=== PATIENT | female | born 1970 | race Caucasian/White ===

== ENCOUNTER 2019-11-23 19:37 | Emergency (ER) | payer BC, OTHER ==
[~2019-11-23] VITALS: Ht 170.2 cm; Wt 81.6 kg
[2019-11-23 21:42] LABS: Basophils # (auto) 0 10 ^3/uL (0-0.2); Eosinophils # (auto) 0 10 ^3/uL (0-0.8); Lymphocytes # (auto) 1.2 10 ^3/uL (0.4-5.4); Monocytes # (auto) 0.3 10 ^3/uL (0-1.3); Neutrophils # (auto) 1.6 10 ^3/uL (1.6-8.6); Red Blood Cells 3.32 10^6/uL (4.0-5.20); White Blood Cell 3.2 10^3/uL (4.4-10.8)
[2019-11-23 21:44] LABS: Albumin 3.4 g/dL (3.4-5.0); Anion Gap 12 (5-15); Blood Urea Nitrogen 11 mg/dL (7-18); Calcium 8.3 mg/dL (8.5-10.1); Carbon Dioxide 22 mmol/L (21-32); Chloride 109 mmol/L (98-107); Glucose 173 mg/dL (74-106); Magnesium 1.6 mg/dL (1.6-2.6); Sodium 143 mmol/L (136-145)
[2019-11-23 21:46] LABS: Basophils % (auto) 0.4 % (0.0-2.0); Hematocrit 35.9 % (36.0-46.0); Hemoglobin 12.6 g/dL (12.2-16.2); Lymphocytes % (auto) 38.7 % (10.0-50.0); Mean Corpuscular Volume 108.4 fL (80.0-100.0); Monocytes % (auto) 9.6 % (0.0-12.0); Neutrophils % (auto) 50.3 % (37.0-80.0); Nucleated Red Blood Cells % 0.2 %; Platelet Count (auto) 177 10^3/uL (140-450); Red Cell Distribution Width 15.6 % (11.8-14.3)
[2019-11-23 21:54] LABS: Alanine Aminotransferase 105 U/L (13-56); Alkaline Phosphatase 82 U/L (45-117); Aspartate Aminotransferase 141 U/L (15-37); BUN/Creatinine Ratio 11.7; Bilirubin, Total 0.2 mg/dL (0.2-1.0); Creatine Kinase IFCC 73 U/L (26-192); GFR African American 82 mL/min; GFR Non-African American 68 mL/min; Total Protein 6.3 g/dL (6.4-8.2)
[2019-11-23 22:04] LABS: INR 1.01 (0.9-1.15); Partial Thromboplastin Time 23.5 sec (23.0-31.2)
[2019-11-23 22:08] LABS: Potassium 2.7 mmol/L (3.5-5.1)
[2019-11-23 22:44] LABS: Urine Bacteria NONE SEEN /hpf (None Seen); Urine Blood Negative /uL (Negative); Urine Mucus FEW (None Seen); Urine Specific Gravity 1.023 (1.001-1.035); Urine WBC 4 /hpf (0 - 5)
[2019-11-23 22:52] LABS: Amphetamine Screen, Urine NEGATIVE (NEGATIVE); Barbiturate Scree,Urine NEGATIVE (NEGATIVE); Benzodiazephine Screen, Urine NEGATIVE (NEGATIVE); Cannabinoid Screen, Urine POSITIVE (NEGATIVE); Cocaine Screen, Urine NEGATIVE (NEGATIVE); Opiate Scree,Urine NEGATIVE (NEGATIVE); Phencyclidine Screen, Urine NEGATIVE (NEGATIVE)
[2019-11-23] MEDS ORDERED: POTASSIUM EFFERVESENT TAB 25 MEQ PO ONE (23:15)
[2019-11-23] MEDS ORDERED: LORazepam 0.5 MG TAB PO ONE (23:15)
[2019-11-24 01:21] LABS: Albumin 3.2 g/dL (3.4-5.0)
[2019-11-24 01:25] LABS: Bilirubin, Direct 0.1 mg/dL (0-0.2); Bilirubin, Total 0.2 mg/dL (0.2-1.0); Total Protein 5.9 g/dL (6.4-8.2)
[2019-11-24] MEDS ORDERED: TEMAZEPAM 15 MG CAP PO ONE ×2 (05:00→23:00)
[2019-11-24] MEDS ORDERED: SODIUM CHLORIDE 0.9% 1,000 ML IV ONE (10:30)
[2019-11-24] MEDS ORDERED: LORazepam 2MG/ML-1ML VIAL IV ONE (10:30)
[2019-11-24] MEDS ORDERED: FOLIC ACID 1 MG, MULTIPLE VITAMIN 10 ML, MAGNESIUM SULF SDV 50% 8 MEQ, THIAMINE INJ 100... INJ ONE ×5 (12:00)
[2019-11-24] MEDS: LORazepam 2MG/ML-1ML VIAL IV SCH ×3 (16:15→23:03)
[2019-11-24] MEDS ORDERED: LORazepam 2MG/ML-1ML VIAL IM ONE (18:00)
[2019-11-24] MEDS ORDERED: ACETAMINOPHEN 325 MG TAB PO ONE (23:45)
[2019-11-25] MEDS: LORazepam 2MG/ML-1ML VIAL IV SCH ×3 (02:12→09:07)
[2019-11-25 11:00] VITALS: BP 159/90
== END 2019-11-25 10:37 | disposition short-term general hospital (02) ==
LOC: ER 19:37 → EDBD 19:37 → ER 11-25 10:37
DX: T42.6X1A Poisoning by other antiepileptic and sedative-hypnotic drugs, accidental (unintentional), initial encounter (principal); F32.9 Major depressive disorder, single episode, unspecified; R45.851 Suicidal ideations; F10.129 Alcohol abuse with intoxication, unspecified; F19.10 Other psychoactive substance abuse, uncomplicated; E87.6 Hypokalemia; E11.65 Type 2 diabetes mellitus with hyperglycemia; R74.8 Abnormal levels of other serum enzymes; E44.1 Mild protein-calorie malnutrition; F41.9 Anxiety disorder, unspecified; I10 Essential (primary) hypertension; F17.210 Nicotine dependence, cigarettes, uncomplicated; Y90.7 Blood alcohol level of 200-239 mg/100 ml; Z68.28 Body mass index [BMI] 28.0-28.9, adult; Z98.890 Other specified postprocedural states; Y92.89 Other specified places as the place of occurrence of the external cause
CPT/HCPCS: 36415; 80053; 80076; 80307; 80320; 80329; 81001; 82550; 82553; 83735; 83880; 84484; 84702; 85025; 85610; 85730; 93005; 96361; 96365; 96375; 96376; 99285; J2060; J3411; J3475; J7070

== ENCOUNTER 2020-08-05 12:16 | Emergency (ER) | payer BC, MEDICAID ==
[~2020-08-05] VITALS: Ht 160 cm; Wt 74.8 kg
[2020-08-05] MEDS ORDERED: LORazepam 2MG/ML-1ML VIAL IV ONE (12:30)
[2020-08-05] MEDS ORDERED: ASPirin 81 mg TAB PO ONE (12:30)
[2020-08-05 12:58] VITALS: BP 139/96
== END 2020-08-05 13:01 | disposition left against medical advice (07) ==
LOC: ER 12:16
DX: M79.602 Pain in left arm (principal); M79.605 Pain in left leg; I10 Essential (primary) hypertension; F17.210 Nicotine dependence, cigarettes, uncomplicated; Z86.73 Personal history of transient ischemic attack (TIA), and cerebral infarction without residual deficits; Z90.49 Acquired absence of other specified parts of digestive tract; Z91.018 Allergy to other foods

== ENCOUNTER 2024-03-02 20:35 | Emergency (ER) | payer MEDICAID ==
[~2024-03-02] VITALS: Ht 160 cm; Wt 78.7 kg
[2024-03-03] MEDS: KETOROLAC TROMETH 60MG/2ML VIAL IM ONE (01:06)
--- NOTE | 2024-03-03 01:15 | DVH ---
XY R HAND 3 VIEW XRAY, INDICATION: dog bites pain and swelling TECHNICAL DATA: Frontal, oblique and lateral views were obtained of the right hand. COMPARISON: None FINDINGS: No fracture is identified. Joint spaces are maintained. Alignment is anatomic. Soft tissues are withi n normal limits. IMPRESSION: No acute fracture or dislocation of the right hand.
[2024-03-03] MEDS ORDERED: AUG875T PO (01:24)
[2024-03-03] MEDS ORDERED: IBUP-1456 PO (01:24)
--- NOTE | 2024-03-03 01:24 | ED.PDOC ---
History of Present Illness(SKN HPI Comments 54-year-old female presents to the ED chief complaint dog bite to right hand. States she was trying to break up her dogs that were fighting a Malian Henry and a pit bull and the pit bull bit her right hand. He is complaining of right hand pain 10/10 on pain scale throbbing and sharp in nature nonradiating. She states indications are up-to-date on the dog and her tetanus was under 10 years ago. Denies numbness, weakness or any other known injury. Chief Complaint: Animal Bite Time Seen by MD: 20:40 History of Present Illness: Nurses Notes, Medications, Allergies Allergies: Coded Allergies: Gluten Meal (Verified Allergy, Unknown, 11/23/19) Wheat (Verified Allergy, Unknown, 11/23/19) Home Meds Active Scripts Ibuprofen (Ibuprofen) 800 Mg Tab, 1 TAB PO TID PRN for 5 Days, #15 TAB Prov:WALKER LOVELACE [employer] 03/03/24 Amoxicillin & Pot Clavulanate (AUGMENTIN TABLET) 875 Mg Tb, 1 TAB PO BID for 7 Days, #14 TAB Prov:WALKER LOVELACE [employer] 03/03/24 Information Source: Patient Mode of Arrival: Ambulatory Past Medical History PAST MEDICAL HISTORY: Anxiety, Depression, HTN, TIA Surgical History: Cholecystectomy, DIRECTOR OF INSTITUTIONAL RESEARCH History: No Pertinent DIRECTOR OF INSTITUTIONAL RESEARCH History Family History Family History: Reviewed,noncontributory to illness, Family hx of HTN Social History Smoker: Cigarettes, Less Than 1 Pack/Day Alcohol: Rarely Drugs: Denies Drug Use Lives In: Home Constitutional: denies: chills, diaphoresis, fatigue, fever, malaise, sweats, weakness, others EENTM: denies: blurred vision, double vision, ear bleeding, ear discharge, ear drainage, ear pain, ear ringing, eye pain, eye redness, hearing loss, mouth pain, mouth swelling, nasal discharge, nose bleeding, nose congestion, nose pain, photophobia, tearing, throat pain, throat swelling, voice changes, others Respiratory: denies: cough, hemoptysis, orthopnea, SOB at rest, shortness of breath, SOB with excertion, stridor, wheezing, others Cardiovascular: denies: chest pain, dizzy spells, diaphoresis, Dyspnea on exertion, edema, irregular heart beat, left arm pain, lightheadedness, palpitations, PND, syncope, others Gastrointestinal: denies: abdomen distended, abdominal pain, blood streaked bowels, constipated, diarrhea, dysphagia, difficulty swallowing, hematemesis, melena, nausea, poor appetite, poor fluid intake, rectal bleeding, rectal pain, vomiting, others Genitourinary: denies: abnormal vagina bleeding, burning, dyspareunia, dysuria, flank pain, frequency, hematuria, incontinence, pain, , vagina discharge, urgency, others Neurological: denies: dizziness, fainting, headache, left sided numbness, left sided weakness, numbness, paresthesia, pre-existing deficit, right sided numbness, right sided weakness, seizure, speech problems, tingling, tremors, weakness, others Musculoskeletal: denies: back pain, gout, joint pain, joint swelling, muscle pain, muscle stiffness, neck pain, others Integumetry: reports: wounds (Puncture wounds to right hand); denies: bruises, change in color, change in hair/nails, dryness, laceration, lesions, lumps, rash, others Allergic/Immunocompromised: denies: Difficulty Healing, Frequent Infections, Hives, Itching, others Hematologic/Lymphatic: denies: anemia, blood clots, easy bleeding, easy bruising, swollen glands, others Endocrine: denies: excessive hunger, excessive sweating, excessive thirst, excessive urination, flushing, intolerance to cold, intolerance to heat, unexplained weight gain, unexplained weight loss, others Psychiatric: denies: anxiety, bipolar disorder, depression, hopeless, panic disorder, schizophrenia, sleepless, suicidal, others Physical Exam General Appearance: No Apparent Distress, Normal HEENT: Pharynx Normal Neck: Full Range of Motion, Non-Tender Respiratory: Lungs Clear, No Respiratory Distress, Normal Breath Sounds Cardiovascular: No Murmur, Normal Peripheral Pulses, Regular Rate/Rhythm Breast Exam: Deferred Gastrointestinal: Non Tender, Soft Genitalia: Deferred Pelvic: Deferred Rectal: Deferred Extremities: Normal capillary refill, Normal inspection, Normal range of motion, Non-tender, No pedal edema Musculoskeletal : Apperance: Normal Neurologic: Alert, 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 Strength sensory motion intact to right hand positive radial pulse.) Lymphatic: No Adenopathy Was a procedure done? Was a procedure done?: No Differential Diagnosis (INTG) Differential Diagnosis: Cellulitis, Puncture Wound X-Ray, Labs, Meds, VS Vital Signs Date Time Temp Pulse Resp B/P (MAP) Pulse Ox O2 Delivery O2 Flow Rate FiO2 03/03/24 01:42 65 19 98 Room Air 03/03/24 01:42 98.2 65 19 146/82 (103) 98 98.2 03/02/24 20:46 98.2 91 16 134/91 (105) 95 Current Medications Medications (Trade) Dose Ordered Sig/Carmencita Route Start Time Stop Time Status Last Admin Ketorolac Tromethamine (Toradol Injection) 60 mg ONCE ONCE IM 03/03/24 01:00 03/03/24 01:01 DC 03/03/24 01:06 Acetaminophen/ Hydrocodone Bitart (Boutte 5/325MG Tab) 1 tab ONCE ONCE PO 03/03/24 02:00 03/03/24 01:56 DC 03/03/24 01:52 X-Ray, Labs, Meds, VS Comment Wound cleansed and Betadine and saline clean sterile dressing applied. Patient given Toradol 60 mg IM and Boutte 5 mg p.o. she notes improvement in pain and function is requesting discharge at this time. Script prophylactic Augmentin twice daily x7 days. Advised on rice. Advised to follow up with PCP or urgent care or back here in the ER in 2-3 days as necessary for wound re-evaluation. ER return precautions given patient indicated understanding discharge plan of care. Time of 1ST Reevaluation: 01:20 Reevaluation 1ST: Improved Patient Education/Counseling: Diagnosis, Treatment, Prognosis, Need For Follow Up Family Education/Counseling: Diagnosis, Treatment, Prognosis, Need For Follow Up, No Family Present Departure 1 Departure Time of Disposition: 01:23 Impression: Primary Impression: Dog bite of right hand Qualified Codes: S61.451A - Open bite of right hand, initial encounter; W54.0XXA - Bitten by dog, initial encounter Disposition: 01 HOME / SELF CARE / HOMELESS Condition: Stable e-Prescriptions Ibuprofen (Ibuprofen) 800 Mg Tab 1 TAB PO TID PRN for 5 Days, #15 TAB Prov: WALKER LOVELACE 03/03/24 Amoxicillin & Pot Clavulanate (AUGMENTIN TABLET) 875 Mg Tb 1 TAB PO BID for 7 Days, #14 TAB Prov: WALKER LOVELACE 03/03/24 Discharged With: Self Critical Care Note Critical Care Time?: No Stability Stability form required: No WALKER LOVELACE Mar 03, 2024 01:24
[2024-03-03 01:42] VITALS: BP 146/82; PULSE 65; RESP 19; TEMP 98.2; O2SAT 98
[2024-03-03] MEDS: HYDROcodone-ACET 5/325MG TAB PO ONE (01:52)
== END 2024-03-03 01:56 | disposition home or self-care (01) ==
LOC: ER 20:35
DX: S61.451A Open bite of right hand, initial encounter (principal); F41.9 Anxiety disorder, unspecified; F32.A Depression, unspecified; I10 Essential (primary) hypertension; F17.210 Nicotine dependence, cigarettes, uncomplicated; Z90.49 Acquired absence of other specified parts of digestive tract; Z79.899 Other long term (current) drug therapy; Z98.890 Other specified postprocedural states; Z86.73 Personal history of transient ischemic attack (TIA), and cerebral infarction without residual deficits; Z88.8 Allergy status to other drugs, medicaments and biological substances; W54.0XXA Bitten by dog, initial encounter; Y93.89 Activity, other specified; Y92.89 Other specified places as the place of occurrence of the external cause; Y99.8 Other external cause status
CPT/HCPCS: 73130; 96372; 99283; J1885